=== PATIENT | female | born 1965 | race Caucasian/White ===

== ENCOUNTER 2023-07-07 09:25 | Outpatient (CLI) | payer OTHER, SELFPAY ==
--- NOTE | ~2023-07-07 | MR_ITS ---
EXAMINATION: MR foot LT wo/w con DATE: 07/07/2023 10:53 INDICATION: Left foot pain. Left second toe ulcer. TECHNIQUE: Magnetic resonance imaging (MRI) of the left foot was performed without and with 18 mL Mul tiHance intravenous contrast. COMPARISON: None. FINDINGS: Pes planus is noted. Partially visualized is severe midfoot osteoarthritis with nearby syno vial cysts. There is artifact from instrumentation of fifth metatarsal. There is an old healed fractu re of diaphysis of fourth metatarsal. There is soft tissue swelling of the second digit. There are er osions and bone marrow edema of second distal phalanx, consistent with osteomyelitis. There is widesp read subcutaneous edema. IMPRESSION: 1. Osteomyelitis involving second distal phalanx. 2. Severe midfoot osteoarthritis. Reviewed, dictated and finalized at location A. [employer] ASSURANCE MANAGER
== END 2023-07-07 09:26 | disposition home or self-care (01) ==
LOC: ANHIMG 09:28
PROVIDERS: Visit Provider Orthopaedic Surgery
DX: M86.9 Osteomyelitis, unspecified (principal); M19.072 Primary osteoarthritis, left ankle and foot
CPT/HCPCS: 73720; A9577